=== PATIENT | female | born 1990 | race Caucasian/White ===

== ENCOUNTER 2022-03-02 13:10 | Emergency (ER) | payer MEDICAID, SELFPAY ==
[2022-03-02 13:18] VITALS: BP 154/112; PULSE 123; RESP 20; TEMP 36.7; O2SAT 98; BMI 24.0
--- NOTE | 2022-03-02 14:10 | ED_ITS ---
HPI - Anxiety General: Chief Complaint: Anxiety Stated Complaint: Alcohol withdrawl, anxiety Time Seen by Provider: 03/02/22 13:58 History of Present Illness: Patient is a 32-year-old female comes to the ED with alcohol withdrawal symptoms. Patient admits to being a heavy alcohol user for the past 3 months and she quit alcohol using alcohol on Saturday. She started having symptoms on Saturday. She has been having increased anxiety, shakiness, auditory hallucinations. Auditory hallucinations are described as hearing music at night when she is laying down to sleep. She also reports not being able to sleep for the past several days as well and says her body constantly jerks at night keeping her up. She reports having her eyes closed and that her body will start doing actions such as scrolling through her phone even though she does not currently have her phone in her hand. She says her withdrawal symptoms are better than they were a couple days ago. Denies any SI, HI. Associated symptoms: Reports nausea; Deny chest pain, chills, fever(s), headache(s), palpitations or vomiting Review of Systems Const: Denies: fever(s), chills or fatigue Eyes: Denies: change in vision or eye discomfort ENMT: Denies: throat pain, odynophagia, nasal discharge or nasal congestion Card: Denies: chest pain, palpitations, edema, swelling of feet/ankles, dyspnea on exertion or orthopnea Resp: Denies: dyspnea, productive cough or non-productive cough GI: Reports: nausea; Denies: abdominal pain, vomiting, diarrhea, constipation or hematochezia : Denies: flank pain, dysuria or hematuria Musc: Denies: neck pain, back pain or extremity swelling Skin/Breast: Denies: rash or new lesions Neuro: Denies: headache(s), numbness in extremities or weakness in extremities Psych: Reports: anxiety, auditory hallucinations and other (Alcohol withdrawal symptoms) [facility] ED PFSH: Medical History No pertinent family history Surgical History No pertinent past surgical history Female Reproductive History: Date of last menstrual period: 03/02/22 Physical Exam Const: COMMON NORMALS: no acute distress, patient oriented x3 and alert GENERAL APPEARANCE: cooperative and anxious HENMT: COMMON NORMALS: normocephalic HEAD & SCALP: normocephalic MOUTH: Normal oral and palatal mucosa present THROAT: posterior oropharynx normal and uvula midline Eye: COMMON NORMALS: Equal, round and reactive pupils present and conjunctivae normal CONJUNCTIVA: Yes conjunctivae normal PUPIL: Yes Equal, round and reactive pupils present Neck/C-Spine: COMMON NORMALS: supple GENERAL: Yes normal visual inspection Resp: COMMON NORMALS: normal respiratory effort, No retractions, No use of accessory muscles and clear to auscultation bilaterally AUSCULTATION: clear to auscultation bilaterally Cardio: COMMON NORMALS: regular rate, regular rhythm, S1 normal heart sound present, S2 normal heart sound present, No gallops present (Cardio), No clicks present (Cardio), No murmurs present (Cardio) and Peripheral pulses 2+ through out RATE: regular rate RHYTHM: regular rhythm HEART SOUNDS: S1 normal heart sound present and S2 normal heart sound present PERIPHERAL PULSES: Peripheral pulses 2+ throughout GI: COMMON NORMALS: Normal to inspection, nondistended, normoactive bowel sounds present, Soft to palpation, non-tender and no masses PALPATION: Yes Soft to palpation : COMMON NORMALS: Yes no CVA tenderness BLADDER/KIDNEY EXAM: Yes no CVA tenderness Back/Pelvis: COMMON NORMALS: no CVA tenderness Extremity: NARRATIVE EXTREMITY EXAM: shakiness in bilateral hands Neuro: COMMON NORMALS: patient oriented x3 and moves all extremities SENSORIUM/ORIENTATION: Yes alert SPEECH: speech normal Psych: THOUGHT CONTENT: No Suicidality present, No Homicidality present and No Hallucination(s) present Skin: GENERAL SKIN EXAM: dry skin Course Vital Signs: Vital signs: Vital Signs Temperature 98.0 F 03/02/22 13:18 Pulse Rate 123 H 03/02/22 13:18 Respiratory Rate 20 H 03/02/22 13:18 Blood Pressure 154/112 03/02/22 13:18 Pulse Oximetry 98 03/02/22 13:18 MDM - Anxiety Medical Decision Making Patient is a 32-year-old female comes to the ED with some alcohol withdrawal symptoms. Patient has been a heavy drinker for the last 3 to 4 months and decided to stop drinking approximately 5 days ago. She has been having some withdrawal symptoms of anxiety, shakiness, nausea and diaphoresis. She is also experiencing some very mild auditory hallucinations such as hearing some music at night when she lays down to close her eyes and sleep. she says that her symptoms were worse a couple days ago and they have been improving. Denies any SI or HI. Vitals are stable. Patient does appear anxious and has some bilateral hand shaking upon exam. The rest of her exam is benign. Labs were unremarkable. Urine drug screen was negative and alcohol level was normal. Patient was given IV fluids, thiamine and some Ativan to help with withdrawal symptoms. I discussed with patient the importance of alcohol detox and patient said she is serious about quitting drinking alcohol. I discussed patient case with Dr. Jones and he agreed with plan that she could be stable for discharge home and sent her with a prescription of Librium. Patient was stable for discharge home and she was sent home with a prescription for Librium. I stressed with her multiple times that if she is going to take the Librium she cannot be drinking any alcohol. I also told her that the Librium is something to use to help with withdrawal symptoms and that she can likely taper off of the librium for the next couple days as her withdrawal symptoms lessen. Patient did not want a referral to behavioral health for anxiety. I placed an order with case management for patient be referred to [facility]. She was given strict return ED precautions. Lab Data I reviewed the patient's lab results. : 03/02/22 14:35 03/02/22 14:35 Laboratory Results WBC 6.8 10^3/uL (4.0-10.0) 03/02/22 14:35 RBC 4.39 10^6/uL (4.1-5.3) 03/02/22 14:35 Hgb 14.5 g/dL (11.5-15.3) 03/02/22 14:35 Hct 43.6 % (37.0-47.0) 03/02/22 14:35 MCV 99.3 fl (81-99) H 03/02/22 14:35 MCH 33.0 pg (28.0-34.0) 03/02/22 14:35 MCHC 33.3 g/dL (30.0-36.0) 03/02/22 14:35 RDW 12.5 % (12.1-15.1) 03/02/22 14:35 Plt Count 156 10^3/cmm (130-400) 03/02/22 14:35 MPV 9.7 fL (7.4-10.4) 03/02/22 14:35 Neut % (Auto) 75.5 % 03/02/22 14:35 Lymph % (Auto) 15.2 % 03/02/22 14:35 [place] % (Auto) 8.0 % 03/02/22 14:35 Eos % (Auto) 0.6 % 03/02/22 14:35 Baso % (Auto) 0.6 % 03/02/22 14:35 Neut # (Auto) 5.13 10^3/uL (1.8-7.7) 03/02/22 14:35 Lymph # (Auto) 1.0 10^3/uL (0.8-4.8) 03/02/22 14:35 [place] # (Auto) 0.5 10^3/uL (0.2-0.9) 03/02/22 14:35 Eos # (Auto) 0.0 10^3/uL (0.0-0.8) 03/02/22 14:35 Baso # (Auto) 0.0 10^3/uL (0.0-0.1) 03/02/22 14:35 Nucleated RBC % (auto) 0 % 03/02/22 14: Nucleated RBCs # 0.0 /100WBC 03/02/22 14:35 Sodium 138 mmol/L (136-145) 03/02/22 14:35 Potassium 3.5 mmol/L (3.5-5.1) 03/02/22 14:35 Chloride 102 mmol/L (98-107) 03/02/22 14:35 Carbon Dioxide 21 mmol/L (22-29) L 03/02/22 14:35 Anion Gap 18.5 (5-19) 03/02/22 14:35 BUN 8 mg/dL (6-20) 03/02/22 14:35 Creatinine 0.6 mg/dL (0.5-0.9) 03/02/22 14:35 GFR Calculation 115.9 mL/min (90-130) 03/02/22 14:35 Glucose 93 mg/dL (65-115) 03/02/22 14:35 Calculated Osmolality 284 mOsm/kg (285-295) L 03/02/22 14:35 Calcium 8.8 mg/dL (8.5-10.5) 03/02/22 14:35 Total Bilirubin 1.2 mg/dL (0.15-1.2) 03/02/22 14:35 AST 38 U/L (0-32) H 03/02/22 14:35 ALT 29 U/L (0-33) 03/02/22 14:35 Alkaline Phosphatase 79 IU/L (35-105) 03/02/22 14:35 Total Protein 8.0 g/dL (6.6-8.7) 03/02/22 14:35 Albumin 5.3 g/dL (3.5-5.2) H 03/02/22 14:35 Globulin 2.7 g/dL (1.3-4.6) 03/02/22 14:35 HCG, Qual Negative (Negative) 03/02/22 14:35 Urine Color Yellow (Yellow) 03/02/22 14:00 Urine Appearance Clear (CLEAR) 03/02/22 14:00 Urine pH 7 (5-7) 03/02/22 14:00 Ur Specific [place] 1.000 (1.005-1.030) L 03/02/22 14:00 Urine Protein Neg (Negative) 03/02/22 14:00 Urine Glucose (UA) Norm (Normal) 03/02/22 14:00 Urine Ketones 1+ (Negative) H 03/02/22 14:00 Urine Blood Neg (Negative) 03/02/22 14:00 Urine Nitrate Negative (Negative) 03/02/22 14:00 Urine Bilirubin Neg (Negative) 03/02/22 14:00 Urine Urobilinogen Norm mg/dL (Negative) 03/02/22 14:00 Ur Leukocyte Esterase Negative (Negative) 03/02/22 14:00 Salicylates 0.4 mg/dL (3-10) L 03/02/22 14:35 Urine Opiates Screen Negative ng/mL (Negative) 03/02/22 14:00 Acetaminophen < 5.0 ug/mL (10-30) L 03/02/22 14:35 Ur Barbiturates Screen Negative ng/mL (Negative) 03/02/22 14:00 Ur Phencyclidine Scrn Negative ng/mL (Negative) 03/02/22 14:00 Ur Amphetamines Screen Negative ng/mL (Negative) 03/02/22 14:00 U Benzodiazepines Scrn Negative ng/mL (Negative) 03/02/22 14:00 Urine Cocaine Screen Negative ng/mL (Negative) 03/02/22 14:00 U Marijuana (THC) Screen Negative ng/mL (Negative) 03/02/22 14:00 Ethyl Alcohol < 10 mg/dL (0-10) 03/02/22 14:35 Discharge Plan Discharge Patient Disposition: Home Clinical Impression: Alcohol withdrawal syndrome Qualifiers: Complication of substance-induced condition: uncomplicated Qualified Code(s): F10.230 - Alcohol dependence with withdrawal, uncomplicated Condition: Stable Prescriptions: New ondansetron 4 mg tablet,disintegrating 4 mg PO Q8H PRN (Reason: nausea and vomiting) Qty: 15 0RF Discharge Orders: Discharge ED (Routine); Ordered 03/02/22 Ordered By: Levi Wiggins Discharge Diet: Regular Discharge Activity: Increase activity as tolerated Activity Restrictions/Additional Instructions: Follow-up with medical provider as directed in the next 3 to 5 days for reevaluation. Case management should be contacting you in the next several days set up an appoint with behavioral health. Do not drink alcohol while taking Librium. Your prescription is written for you to take 1 tab of Librium as needed for withdrawal symptoms up to 3 times a day. The goal is for you to taper off of them as withdrawal symptoms decrease. Take medications as prescribed. Return to the ER or your medical provider if condition worsens. Ple ase read and understand discharge instructions. Thank you for choosing [facility] for your healthcare needs today. Please realize this is an emergency room and that we are providing you with a medical screening exam and this may not be complete and all inclusive of all the testing and or work up that you may need to determine your ailment or severity of your illness. It is very important that you follow up as instructed or that you return to the Emergency Department should you have concerns or if your condition changes or worsens in any way. Coding Level of Care Code ED Immigration Specialist for Fannie Carr Exam Comprehensive
[2022-03-02 14:24] LABS: Add Urine Microscopic? NO; Charge for UA Resulting for Rev
[2022-03-02 14:26] LABS: Bilirubin Urine Neg (Negative); Blood Urine Neg (Negative); Glucose Urine UA Norm (Normal); Ketones Urine 1+ (Negative); Leukocyte Esterase Urine Negative (Negative); Nitrate Urine Negative (Negative); Protein Urine Neg (Negative); Urine Appearance Clear (CLEAR); Urine Color Yellow (Yellow); Urobilinogen Urine Norm (Negative); pH Urine 7 (5-7)
[2022-03-02 14:34] LABS: Amphetamines Screen Urine Negative (Negative); Barbiturates Screen Urine Negative (Negative); Benzodiazepines Screen Urine Negative (Negative); Cocaine Screen Urine Negative (Negative); Opiate Screen Urine Negative (Negative); PCP Screen Urine Negative (Negative); THC Screen Urine Negative (Negative)
[2022-03-02 14:41] LABS: Basophils % 0.6 %; Eosinophils % 0.6 %; Hematocrit 43.6 % (37.0-47.0); Hemoglobin 14.5 g/dL (11.5-15.3); Lymphocytes % 15.2 %; Mean Corpuscular HGB Conc 33.3 g/dL (30.0-36.0); Mean Corpuscular Volume 99.3 fl (81-99); Mean Platelet Volume 9.7 fL (7.4-10.4); Monocytes # 0.5 10^3/uL (0.2-0.9); Neutrophils # 5.13 10^3/uL (1.8-7.7); Neutrophils % 75.5 %; Nucleated Red Blood Cells % 0 %; Platelet Count 156 10^3/cmm (130-400); Red Blood Count 4.39 10^6/uL (4.1-5.3); Red Cell Distribution Width 12.5 % (12.1-15.1); White Blood Count 6.8 10^3/uL (4.0-10.0)
[2022-03-02] MEDS: sodium chloride 0.9% 1,000 ML 999 ML IV (14:48)
[2022-03-02 14:55] LABS: HCG, Serum Qual Negative (Negative)
[2022-03-02 15:06] LABS: Alanine Aminotransferase 29 U/L (0-33); Albumin Level 5.3 g/dL (3.5-5.2); Alkaline Phosphatase 79 IU/L (35-105); Anion Gap 18.5 (5-19); Aspartate Amino Transferase 38 U/L (0-32); Blood Urea Nitrogen 8 mg/dL (6-20); Calcium 8.8 mg/dL (8.5-10.5); Carbon Dioxide 21 mmol/L (22-29); Chloride 102 mmol/L (98-107); Creatinine Clr Calc Pharmacy 123.7201; Globulin 2.7 g/dL (1.3-4.6); Glomerular Filtration Rate 115.9 mL/min (90-130); Glucose 93 mg/dL (65-115); Osmolality Calculated 284 mOsm/kg (285-295); Potassium 3.5 mmol/L (3.5-5.1); Salicylate 0.4 mg/dL (3-10); Sodium 138 mmol/L (136-145); Total Bilirubin 1.2 mg/dL (0.15-1.2)
[2022-03-02 15:10] LABS: Acetaminophen < 5.0 ug/mL (10-30); Alcohol Level < 10 mg/dL (0-10)
[2022-03-02] MEDS: LORazepam 2 mg/mL INJ 1 mL 1 MG IVP (15:37)
--- NOTE | 2022-03-05 15:07 | DCPLANNER ---
manager radio had message to speak with patient about services at [facility]. manager radio called phone number [phone] to speak with her about services at [facility]. manager radio unable to speak with patient at this time, and unable to leave a voicemail for patient.
== END 2022-03-02 16:50 | disposition home or self-care (01) ==
PROVIDERS: Emergency Provider Physician Assistant
DX: F10.230 Alcohol dependence with withdrawal, uncomplicated (principal)
CPT/HCPCS: 80053; 80306; 80307; 81003; 84703; 85025; 96361; 96374; 96375; 99283; J2060; J3411; J7030

== ENCOUNTER 2022-03-21 08:09 | Emergency (ER) | payer MEDICAID, SELFPAY ==
[2022-03-21 08:20] VITALS: BP 152/115; PULSE 114; RESP 20; O2SAT 98; BMI 24.0
--- NOTE | 2022-03-21 08:28 | ED_ITS ---
Documented by User: MANISH Vazquez 03/21/22 09:53 HPI - Alcohol General: Chief Complaint: Alcohol Stated Complaint: etoh withdrawls Time Seen by Provider: 03/21/22 08:10 Source: patient Mode of arrival: ambulatory Limitations: no limitations History of Present Illness: Patient is a nice 32-year-old female presents to ED today with a complaint of anxiety and alcohol withdrawal. Patient tells me she had been drinking heavily over the past several months. She was seen at our facility 2 to 3 weeks ago after she had stopped drinking and was having some mild withdrawal symptoms. Patient was discharged and prescribed Librium. Patient states she did take this medication and it did help with her withdrawal symptoms and anxiety. Patient states she was not drinking while she was on this medication. She states she ran out of the medication and states recently her father causing her to relapse and start drinking again about 3 to 4 days ago. She states her last drink was 48 hours ago. She complains of feeling anxious and shaky . She does complain of some auditory hallucinations of hearing music in the background. She is not having any visual hallucinations. Denies SI/HI. Denies drug use. Patient states she was supposed to have a referral for [facility] to see a provider regarding her anxiety but has not heard back regarding this appointment. MD complaint: alcohol withdrawal Last drink: Days (ago) Chronic alcohol use: Yes Previous visits for alcohol intoxication: Yes Recent trauma: No Associated symptoms: Deny abdominal pain, nausea, seizure-like activity, suicidal ideation, syncope or vomiting Treatments prior to arrival: none Review of Systems Const: Denies: fever(s), chills, body aches, fatigue or malaise Eyes: Denies: change in vision, blurry vision or photophobia Card: Denies: chest pain, palpitations, irregular heart rhythm, edema, swelling of feet/ankles, lightheadedness, syncope, pre-syncope, dyspnea on exertion or orthopnea Resp: Denies: dyspnea, productive cough, non-productive cough, wheezing, pain on inspiration, hemoptysis or chest congestion GI: Denies: abdominal pain, nausea, vomiting, heartburn or diarrhea : Denies: flank pain or dysuria Musc: Denies: neck pain, back pain, extremity pain or joint pain Skin/Breast: Denies: rash Neuro: Denies: headache(s), numbness in extremities, weakness in extremities, sensory changes, lack of coordination, difficulty walking, dizziness, confusion, Slurred speech present or seizure-like activity Psych: Reports: anxiety and auditory hallucinations; Denies: hopelessness, visual hallucinations, suicidal ideation or homicidal ideation PFS ED PFSH: Medical History No pertinent family history Surgical History No pertinent past surgical history Female Reproductive History: Date of last menstrual period: 03/02/22 Physical Exam Const: COMMON NORMALS: average body habitus, patient oriented x3, no limitations, healthy appearing, alert and well nourished GENERAL APPEARANCE: cooperative and anxious ORIENTATION/CONSCIOUSNESS: Yes awake, Yes oriented to person, Yes oriented to place and Yes oriented to time HENMT: COMMON NORMALS: normocephalic and atraumatic HEAD & SCALP: normal to inspection, normocephalic and atraumatic Eye: GENERAL EYE: appearance normal, both eyes and all related structures Resp: COMMON NORMALS: normal respiratory effort and clear to auscultation bilaterally AUSCULTATION: clear to auscultation bilaterally Cardio: COMMON NORMALS: regular rate RATE: regular rate and tachycardic (mild-105) GI: COMMON NORMALS: Normal to inspection, nondistended, normoactive bowel sounds present, Soft to palpation and non-tender PALPATION: Yes Soft to palpation Extremity: COMMON NORMALS: normal to inspection GENERAL: Yes normal exam except as noted OTHER: bilateral UEs tremors noted with arms extended Neuro: ALETA COMA SCALE: document GCS findings [place] coma scale eye opening: Spontaneous [place] coma scale verbal response: Orientated [place] coma scale motor response: Obey commands [place] coma scale total score: 15 COMMON NORMALS: patient oriented x3, CN's II-XII intact bilaterally, moves all extremities, no focal motor deficits, no sensory deficits noted and gait normal SENSORIUM/ORIENTATION: Yes alert, Yes oriented to person, Yes oriented to place and Yes oriented to time GAIT: Yes Normal gait present Psych: COMMON NORMALS: mental status grossly normal, Normal thought process present, cooperative, normal affect, speech normal, activity/motor behavior normal, denies homicidal ideation and denies suicidal ideation APPEARANCE: Yes grossly normal ATTITUDE: Yes calm ACTIVITY/MOTOR BEHAVIOR: Yes appropriate eye contact SPEECH: Yes normal speech MOOD & AFFECT: Yes euthymic mood THOUGHT PROCESS: Normal thought process present THOUGHT CONTENT: Yes Normal thought content present MEMORY/COGNITION: Yes memory grossly intact and Yes cognition grossly intact INSIGHT: Good insight present (Psych) JUDGEMENT: Good judgement present (Psych) Skin: COMMON NORMALS: no rashes or lesions noted GENERAL SKIN EXAM: no rashes or lesions noted Course Vital Signs: Vital signs: Vital Signs Pulse Rate 98 03/21/22 09:43 Respiratory Rate 16 03/21/22 09:43 Blood Pressure 120/84 03/21/22 09:43 Pulse Oximetry 100 03/21/22 09:43 MDM - Alcohol Medical Decision Making Patient here with mild alcohol withdrawal symptoms. Her CIWA score is roughly 10. She does not qualify for a medical admission. Patient feels better after IV Ativan and Benadryl. Vital signs are stable. Basic blood work is normal. Patient is not suicidal or homicidal. Patient states she did good while she was on the Librium last time so we will go ahead and treat her with a short course of this. She is requesting help for her anxiety. I recommend she go to [facility] for her intake screening assessment. Case management note states she was unable to contact patient last time. Her phone number has been updated and I will place another referral. Return to ED precautions given. Lab Data : 03/21/22 08:45 03/21/22 08:45 Laboratory Results WBC 3.7 10^3/uL (4.0-10.0) L 03/21/22 08:45 RBC 4.66 10^6/uL (4.1-5.3) 03/21/22 08:45 Hgb 14.9 g/dL (11.5-15.3) 03/21/22 08:45 Hct 44.2 % (37.0-47.0) 03/21/22 08:45 MCV 94.8 fl (81-99) 03/21/22 08:45 MCH 32.0 pg (28.0-34.0) 03/21/22 08:45 MCHC 33.7 g/dL (30.0-36.0) 03/21/22 08:45 RDW 12.9 % (12.1-15.1) 03/21/22 08:45 Plt Count 283 10^3/cmm (130-400) 03/21/22 08:45 MPV 9.9 fL (7.4-10.4) 03/21/22 08:45 Neut % (Auto) 55.4 % 03/21/22 08:45 Lymph % (Auto) 30.6 % 03/21/22 08:45 [place] % (Auto) 9.6 % 03/21/22 08:45 Eos % (Auto) 2.5 % 03/21/22 08:45 Baso % (Auto) 1.6 % 03/21/22 08:45 Neut # (Auto) 2.03 10^3/uL (1.8-7.7) 03/21/22 08:45 Lymph # (Auto) 1.1 10^3/uL (0.8-4.8) 03/21/22 08:45 [place] # (Auto) 0.4 10^3/uL (0.2-0.9) 03/21/22 08:45 Eos # (Auto) 0.1 10^3/uL (0.0-0.8) 03/21/22 08:45 Baso # (Auto) 0.1 10^3/uL (0.0-0.1) 03/21/22 08:45 Nucleated RBC % (auto) 0 % 03/21/22 08:45 Nucleated RBCs # 0.0 /100WBC 03/21/22 08:45 Sodium 136 mmol/L (136-145) 03/21/22 08:45 Potassium 4.0 mmol/L (3.5-5.1) 03/21/22 08:45 Chloride 102 mmol/L (98-107) 03/21/22 08:45 Carbon Dioxide 19 mmol/L (22-29) L 03/21/22 08:45 Anion Gap 19.0 (5-19) 03/21/22 08:45 BUN 7 mg/dL (6-20) 03/21/22 08:45 Creatinine 0.5 mg/dL (0.5-0.9) 03/21/22 08:45 GFR Calculation 143.0 mL/min (90-130) H 03/21/22 08:45 Glucose 92 mg/dL (65-115) 03/21/22 08:45 Calculated Osmolality 280 mOsm/kg (285-295) L 03/21/22 08:45 Calcium 9.0 mg/dL (8.5-10.5) 03/21/22 08:45 Total Bilirubin 1.0 mg/dL (0.15-1.2) 03/21/22 08:45 AST 26 U/L (0-32) 03/21/22 08:45 ALT 18 U/L (0-33) 03/21/22 08:45 Alkaline Phosphatase 66 IU/L (35-105) 03/21/22 08:45 Total Protein 7.7 g/dL (6.6-8.7) 03/21/22 08:45 Albumin 4.5 g/dL (3.5-5.2) 03/21/22 08:45 Globulin 3.2 g/dL (1.3-4.6) 03/21/22 08:45 HCG, Qual Negative (Negative) 03/21/22 08:45 Discharge Plan Discharge Patient Disposition: Home Clinical Impression: Alcohol withdrawal syndrome Qualifiers: Complication of substance-induced condition: uncomplicated Qualified Code(s): F10.230 - Alcohol dependence with withdrawal, uncomplicated Condition: Stable Prescriptions: Continued chlordiazepoxide HCl 25 mg capsule 25 mg PO TID PRN (Reason: Alcohol Withdrawal) Qty: 9 0RF No Action ondansetron 4 mg tablet,disintegrating 4 mg PO Q8H PRN (Reason: nausea and vomiting) Qty: 15 0RF Discharge Orders: Discharge ED (Routine); Ordered 03/21/22 Ordered By: Katarina Macias Patient Instructions: Alcohol Withdrawal (DC) Coding Level of Care Code ED Mobile Service Rv Technician for Chg Fwd Exam Comprehensive Documented by User: Franklyn Johnston DO 03/22/22 06:53 HPI - Alcohol General: Chief Complaint: Alcohol Stated Complaint: etoh withdrawls Time Seen by Provider: 03/21/22 08:10 PFSH ED PFSH: Medical History No pertinent family history Surgical History No pertinent past surgical history Physical Exam Neuro: ALETA COMA SCALE: document GCS findings [place] coma scale total score: 15 Course Vital Signs: Vital signs: Vital Signs Pulse Rate 98 03/21/22 09:43 Respiratory Rate 16 03/21/22 09:43 Blood Pressure 120/84 03/21/22 09:43 Pulse Oximetry 100 03/21/22 09:43 MDM - Alcohol Medical Decision Making Patient here with mild alcohol withdrawal symptoms. Her CIWA score is roughly 10. She does not qualify for a medical admission. Patient feels better after IV Ativan and Benadryl. Vital signs are stable. Basic blood work is normal. Patient is not suicidal or homicidal. Patient states she did good while she was on the Librium last time so we will go ahead and treat her with a short course of this. She is requesting help for her anxiety. I recommend she go to [facility] for her intake screening assessment. Case management note states she was unable to contact patient last time. Her phone number has been updated and I will place another referral. Return to ED precautions given. Chart reviewed and patient discussed with midlevel. Agree with assessment and plan. Lab Data : 03/21/22 08:45 03/21/22 08:45 Laboratory Results WBC 3.7 10^3/uL (4.0-10.0) L 03/21/22 08:45 RBC 4.66 10^6/uL (4.1-5.3) 03/21/22 08:45 Hgb 14.9 g/dL (11.5-15.3) 03/21/22 08:45 Hct 44.2 % (37.0-47.0) 03/21/22 08:45 MCV 94.8 fl (81-99) 03/21/22 08:45 MCH 32.0 pg (28.0-34.0) 03/21/22 08:45 MCHC 33.7 g/dL (30.0-36.0) 03/21/22 08:45 RDW 12.9 % (12.1-15.1) 03/21/22 08:45 Plt Count 283 10^3/cmm (130-400) 03/21/22 08:45 MPV 9.9 fL (7.4-10.4) 03/21/22 08:45 Neut % (Auto) 55.4 % 03/21/22 08:45 Lymph % (Auto) 30.6 % 03/21/22 08:45 [place] % (Auto) 9.6 % 03/21/22 08:45 Eos % (Auto) 2.5 % 03/21/22 08:45 Baso % (Auto) 1.6 % 03/21/22 08:45 Neut # (Auto) 2.03 10^3/uL (1.8-7.7) 03/21/22 08:45 Lymph # (Auto) 1.1 10^3/uL (0.8-4.8) 03/21/22 08:45 [place] # (Auto) 0.4 10^3/uL (0.2-0.9) 03/21/22 08:45 Eos # (Auto) 0.1 10^3/uL (0.0-0.8) 03/21/22 08:45 Baso # (Auto) 0.1 10^3/uL (0.0-0.1) 03/21/22 08:45 Nucleated RBC % (auto) 0 % 03/21/22 08:45 Nucleated RBCs # 0.0 /100WBC 03/21/22 08:45 Sodium 136 mmol/L (136-145) 03/21/22 08:45 Potassium 4.0 mmol/L (3.5-5.1) 03/21/22 08:45 Chloride 102 mmol/L (98-107) 03/21/22 08:45 Carbon Dioxide 19 mmol/L (22-29) L 03/21/22 08:45 Anion Gap 19.0 (5-19) 03/21/22 08:45 BUN 7 mg/dL (6-20) 03/21/22 08:45 Creatinine 0.5 mg/dL (0.5-0.9) 03/21/22 08:45 GFR Calculation 143.0 mL/min (90-130) H 03/21/22 08:45 Glucose 92 mg/dL (65-115) 03/21/22 08:45 Calculated Osmolality 280 mOsm/kg (285-295) L 03/21/22 08:45 Calcium 9.0 mg/dL (8.5-10.5) 03/21/22 08:45 Total Bilirubin 1.0 mg/dL (0.15-1.2) 03/21/22 08:45 AST 26 U/L (0-32) 03/21/22 08:45 ALT 18 U/L (0-33) 03/21/22 08:45 Alkaline Phosphatase 66 IU/L (35-105) 03/21/22 08:45 Total Protein 7.7 g/dL (6.6-8.7) 03/21/22 08:45 Albumin 4.5 g/dL (3.5-5.2) 03/21/22 08:45 Globulin 3.2 g/dL (1.3-4.6) 03/21/22 08:45 HCG, Qual Negative (Negative) 03/21/22 08:45 Discharge Plan Discharge Patient Disposition: Home Clinical Impression: Alcohol withdrawal syndrome Qualifiers: Complication of substance-induced condition: uncomplicated Qualified Code(s): F10.230 - Alcohol dependence with withdrawal, uncomplicated Condition: Stable Prescriptions: Continued chlordiazepoxide HCl 25 mg capsule 25 mg PO TID PRN (Reason: Alcohol Withdrawal) Qty: 9 0RF No Action ondansetron 4 mg tablet,disintegrating 4 mg PO Q8H PRN (Reason: nausea and vomiting) Qty: 15 0RF Discharge Orders: Discharge ED (Routine); Ordered 03/21/22 Ordered By: Katarina Macias Patient Instructions: Alcohol Withdrawal (DC) Coding Level of Care Code ED Mobile Service Rv Technician for Chg Fwd Exam Comprehensive
[2022-03-21] MEDS: sodium chloride 0.9% 1,000 ML 999 ML IV (08:41)
[2022-03-21] MEDS: multivitamin therapeutic Tablet 1 TAB PO (08:51)
[2022-03-21] MEDS: LORazepam 2 mg/mL INJ 1 mL IVP (08:51)
[2022-03-21 09:04] VITALS: BP 126/87; PULSE 96; RESP 16; O2SAT 98
[2022-03-21 09:08] LABS: Basophils # 0.1 10^3/uL (0.0-0.1); Basophils % 1.6 %; Eosinophils # 0.1 10^3/uL (0.0-0.8); Eosinophils % 2.5 %; Hematocrit 44.2 % (37.0-47.0); Hemoglobin 14.9 g/dL (11.5-15.3); Lymphocytes # 1.1 10^3/uL (0.8-4.8); Lymphocytes % 30.6 %; Mean Corpuscular HGB Conc 33.7 g/dL (30.0-36.0); Mean Corpuscular Volume 94.8 fl (81-99); Mean Platelet Volume 9.9 fL (7.4-10.4); Monocytes # 0.4 10^3/uL (0.2-0.9); Monocytes % 9.6 %; Neutrophils # 2.03 10^3/uL (1.8-7.7); Neutrophils % 55.4 %; Nucleated Red Blood Cells % 0 %; Platelet Count 283 10^3/cmm (130-400); Red Blood Count 4.66 10^6/uL (4.1-5.3); Red Cell Distribution Width 12.9 % (12.1-15.1); White Blood Count 3.7 10^3/uL (4.0-10.0)
[2022-03-21 09:28] LABS: Alanine Aminotransferase 18 U/L (0-33); Albumin Level 4.5 g/dL (3.5-5.2); Alkaline Phosphatase 66 IU/L (35-105); Aspartate Amino Transferase 26 U/L (0-32); Blood Urea Nitrogen 7 mg/dL (6-20); Carbon Dioxide 19 mmol/L (22-29); Chloride 102 mmol/L (98-107); Creatinine Clr Calc Pharmacy 148.4641; Globulin 3.2 g/dL (1.3-4.6); Glucose 92 mg/dL (65-115); Osmolality Calculated 280 mOsm/kg (285-295); Sodium 136 mmol/L (136-145); Total Protein 7.7 g/dL (6.6-8.7)
[2022-03-21 09:35] LABS: HCG, Serum Qual Negative (Negative)
[2022-03-21 09:43] VITALS: BP 120/84; PULSE 98; RESP 16; O2SAT 100
[2022-03-21] MEDS: diphenhydrAMINE 50 mg/mL SDV 1mL 25 MG IVP (09:51)
--- NOTE | 2022-04-09 13:54 | DCPLANNER ---
billing services manager had message to speak with patient about services at [facility] [place]. billing services manager called phone number [phone], unable to speak with patient and unable to leave a voicemail for patient.
== END 2022-03-21 10:25 | disposition home or self-care (01) ==
PROVIDERS: Emergency Provider Physician Assistant
DX: F10.230 Alcohol dependence with withdrawal, uncomplicated (principal); Y90.9 Presence of alcohol in blood, level not specified
CPT/HCPCS: 80053; 84703; 85025; 96361; 96374; 96375; 99284; J1200; J2060; J3411; J7030

== ENCOUNTER 2022-04-05 09:28 | Emergency (ER) | payer MEDICAID, SELFPAY ==
[2022-04-05 09:46] VITALS: BP 137/102; PULSE 140; RESP 24; TEMP 36.7; O2SAT 97; BMI 24.0
--- NOTE | 2022-04-05 09:56 | XR_ITS ---
WS: [id number] Portable AP upright chest, 04/05/2022 Clinical Data: dyspnea/cough Comparison: None. Findings: No nodules, masses or effusions are seen. The heart is normal. The pulmonary vascularity is not increased. No pneumonia or pneumothorax is seen. XR/XR chest 1V portable [id number] Impression: Negative chest.
--- NOTE | 2022-04-05 10:10 | ED_ITS ---
HPI - Alcohol General: Chief Complaint: Alcohol Stated Complaint: Alcohol withdraw Time Seen by Provider: 04/05/22 09:44 Source: patient Mode of arrival: ambulatory Limitations: no limitations History of Present Illness: 32-year-old female presents emergency room complaining of withdrawal from alcohol. She stated she is having all of the symptoms . She normally drinks 6 beers a day for the last month. She occasionally will have shots of hard liquor. Her last drink was approximately 18 hours ago. She has been seen previously with complaints of withdrawal and was given chlordiazepoxide which she took 1 this morning at 4 AM. Last drink: Hours (ago) Chronic alcohol use: Yes Associated symptoms: Reports vomiting; Deny abdominal pain, depression, diaphoresis, hematemesis, involuntary movements, melena, nausea, seizure-like activity, suicidal ideation or syncope Treatments prior to arrival: none Review of Systems Const: Denies: fever(s), chills, body aches or diaphoresis ENMT: Denies: throat pain, ear or mastoid pain, nasal discharge or nasal congestion Card: Denies: chest pain, palpitations or syncope Resp: Denies: dyspnea, productive cough or non-productive cough GI: Reports: vomiting; Denies: abdominal pain, nausea, hematemesis or melena : Denies: flank pain, difficulty voiding, dysuria, urinary frequency or urinary urgency Skin/Breast: Denies: rash or pruritus Neuro: Denies: seizure-like activity or involuntary movements Psych: Denies: depression or suicidal ideation PFS ED PFSH: Medical History No pertinent family history Surgical History No pertinent past surgical history Female Reproductive History: Date of last menstrual period: 04/03/22 Physical Exam Const: GENERAL APPEARANCE: cooperative and comfortable ORIENTATION/CONSCIOUSNESS: Yes awake, Yes oriented to person, Yes oriented to place and Yes oriented to time HENMT: COMMON NORMALS: normocephalic, atraumatic and hearing grossly normal bilaterally HEAD & SCALP: normocephalic and atraumatic Neck/C-Spine: COMMON NORMALS: no JVD Resp: COMMON NORMALS: No retractions, No use of accessory muscles and clear to auscultation bilaterally EFFORT & INSPECTION: Yes tachypneic AUSCULTATION: clear to auscultation bilaterally Cardio: COMMON NORMALS: no JVD, regular rate, regular rhythm and No murmurs present (Cardio) RATE: regular rate RHYTHM: regular rhythm GI: COMMON NORMALS: Soft to palpation and No hepatosplenomegaly present AUSCULTATION: Yes normoactive bowel sounds PALPATION: Yes Soft to palpation, No Tenderness to palpation present (GI), No Guarding due to palpation present (G I) and Yes No hepatosplenomegaly present Extremity: COMMON NORMALS: normal to inspection, capillary refill normal, no clubbing, cyanosis or edema, no calf tenderness and no pedal edema Neuro: SENSORIUM/ORIENTATION: Yes oriented to person, Yes oriented to place and Yes oriented to time Skin: COMMON NORMALS: no rashes or lesions noted GENERAL SKIN EXAM: no rashes or lesions noted Course Vital Signs: Vital signs: Vital Signs Temperature 98.0 F 04/05/22 09:46 Pulse Rate 121 H 04/05/22 12:37 Respiratory Rate 16 04/05/22 12:10 Blood Pressure 116/76 04/05/22 12:37 Pulse Oximetry 98 04/05/22 12:37 MDM - Alcohol Medical Decision Making Blood alcohol 33. Patient stated her last drink was about 15 to 18 hours ago in which case she was significantly intoxicated she states she only drinks 6 beers a day. Her blood gas reflects respiratory alkalosis she was hyperventilating when she arrived here. She has presented multiple times in the past with complaints of alcohol withdrawal. Mucus is more anxiety gave her Atarax to use as needed encourage alcohol abstinence. Medical Records I reviewed the patient's medical records. Lab Data I reviewed the patient's lab results. : 04/05/22 11:01 04/05/22 11:01 Radiology Impressions Chest X-Ray 04/05/22 09:56 Impression: Negative chest. Laboratory Results WBC 5.9 10^3/uL (4.0-10.0) 04/05/22 11:01 RBC 4.99 10^6/uL (4.1-5.3) 04/05/22 11:01 Hgb 15.8 g/dL (11.5-15.3) H 04/05/22 11:01 Hct 46.6 % (37.0-47.0) 04/05/22 11:01 MCV 93.4 fl (81-99) 04/05/22 11:01 MCH 31.7 pg (28.0-34.0) 04/05/22 11:01 MCHC 33.9 g/dL (30.0-36.0) 04/05/22 11:01 RDW 13.5 % (12.1-15.1) 04/05/22 11:01 Plt Count 279 10^3/cmm (130-400) 04/05/22 11:01 MPV 9.6 fL (7.4-10.4) 04/05/22 11:01 Neut % (Auto) 77.6 % 04/05/22 11:01 Lymph % (Auto) 16.2 % 04/05/22 11:01 [place] % (Auto) 4.3 % 04/05/22 11:01 Eos % (Auto) 0.5 % 04/05/22 11:01 Baso % (Auto) 1.2 % 04/05/22 11:01 Neut # (Auto) 4.57 10^3/uL (1.8-7.7) 04/05/22 11:01 Lymph # (Auto) 1.0 10^3/uL (0.8-4.8) 04/05/22 11:01 [place] # (Auto) 0.3 10^3/uL (0.2-0.9) 04/05/22 11:01 Eos # (Auto) 0.0 10^3/uL (0.0-0.8) 04/05/22 11:01 Baso # (Auto) 0.1 10^3/uL (0.0-0.1) 04/05/22 11:01 Nucleated RBC % (auto) 0 % 04/05/22 11:01 Nucleated RBCs # 0.0 /100WBC 04/05/22 11:01 Specimen Type Arterial 04/05/22 11:22 Sample Site Radial, left 04/05/22 11:22 ABG pH 7.45 (7.35-7.45) 04/05/22 11:22 ABG pCO2 25.8 mmHg (35-45) L 04/05/22 11:22 ABG pO2 108.0 mmHg (80.0-100.0) H 04/05/22 11:22 ABG HCO3 18.1 mmol/L (22-26) L 04/05/22 11:22 ABG O2 Saturation 98.7 04/05/22 11:22 ABG Base Excess -4.1 mmol/L (-2.0-2.0) L 04/05/22 11:22 Ag Test Pos 04/05/22 11:22 A-a O2 Gradient 0.8 mmHg (5-10) L 04/05/22 11:22 Hematocrit 44.2 % (37-47) 04/05/22 11:22 Hgb O2 Saturation 97.6 % (95-100) 04/05/22 11:22 Carboxyhemoglobin 0.6 %THgb (0.4-20.1) 04/05/22 11:22 Methemoglobin 0.4 % (0.4-1.5) 04/05/22 11:22 Total Hemoglobin 14.4 g/dL (12-16) 04/05/22 11:22 Sodium 140.0 mmol/L (131-143) 04/05/22 11:22 Potassium 4.0 mmol/L (3.5-5.0) 04/05/22 11:22 Glucose 70.0 mg/dL (70-115) 04/05/22 11:22 Ionized Calcium 1.1 mmol/L (1.1-1.4) 04/05/22 11:22 O2 Delivery Device Room air 04/05/22 11:22 FiO2 21.0 % 04/05/22 11:22 Donor Support Technician ID glc 04/05/22 11:22 Sodium 136 mmol/L (136-145) 04/05/22 11:01 Potassium 4.5 mmol/L (3.5-5.1) 04/05/22 11:01 Chloride 96 mmol/L (98-107) L 04/05/22 11:01 Carbon Dioxide 18 mmol/L (22-29) L 04/05/22 11:01 Anion Gap 26.5 (5-19) H 04/05/22 11:01 BUN 6 mg/dL (6-20) 04/05/22 11:01 Creatinine 0.5 mg/dL (0.5-0.9) 04/05/22 11:01 GFR Calculation 143.0 mL/min (90-130) H 04/05/22 11:01 Glucose 68 mg/dL (65-115) 04/05/22 11:01 Calculated Osmolality 278 mOsm/kg (285-295) L 04/05/22 11:01 Calcium 9.2 mg/dL (8.5-10.5) 04/05/22 11:01 Total Bilirubin 1.1 mg/dL (0.15-1.2) 04/05/22 11:01 AST 47 U/L (0-32) H 04/05/22 11:01 ALT 23 U/L (0-33) 04/05/22 11:01 Alkaline Phosphatase 89 IU/L (35-105) 04/05/22 11:01 Total Protein 8.5 g/dL (6.6-8.7) 04/05/22 11:01 Albumin 5.0 g/dL (3.5-5.2) 04/05/22 11:01 Globulin 3.5 g/dL (1.3-4.6) 04/05/22 11:01 Salicylates < 0.3 mg/dL (3-10) L 04/05/22 11:01 Acetaminophen < 5.0 ug/mL (10-30) L 04/05/22 11:01 Ethyl Alcohol 33 mg/dL (0-10) H 04/05/22 11:01 Discharge Plan Discharge Patient Disposition: Home Clinical Impression: Alcoholic intoxication, Hyperventilation Condition: Stable Prescriptions: New hydroxyzine HCl 25 mg tablet 25 mg PO 6XD PRN (Reason: anxiety) Qty: 20 0RF No Action chlordiazepoxide HCl 25 mg capsule 25 mg PO TID PRN (Reason: Alcohol Withdrawal) Qty: 9 0RF Discharge Orders: Discharge ED (Routine); Ordered 04/05/22 Ordered By: Franklyn Johnston Patient Instructions: Opioid Safety Activity Restrictions/Additional Instructions: Recommend abstinence from alcohol. Also recommend follow-up either with alcoholics anonymous group or with [facility] to assist. Coding Level of Care Code ED Soa Architect for Rachelleg Fwd Exam Comprehensive
--- NOTE | 2022-04-05 10:10 | ECG_ITS ---
[facility] Test Date: 2022-04-05 Pat Name: Zeinab Damico Department: Room: Gender: Female Marketing Sales Manager: : 1990 Requested By: Franklyn Dawson Order Number: [id number] Vasu MD: Darci Stovall M.D. Measurements Intervals [place] Rate: 104 P: 76 [place]: 146 QRS: 68 QRSD: 79 T: 60 QT: 305 QTc: 401 Interpretive Statements SINUS TACHYCARDIA POSSIBLE LEFT ATRIAL ENLARGEMENT [-0.1mV P-WAVE IN V1/V2] No previous ECG available for comparison Electronically Signed On 04-05-2022 17:15:39 CDT by Darci Stovall M.D. [email or web address]
[2022-04-05 11:06] VITALS: BP 134/87; PULSE 114; RESP 16; O2SAT 98
[2022-04-05 11:06] LABS: Basophils # 0.1 10^3/uL (0.0-0.1); Basophils % 1.2 %; Eosinophils % 0.5 %; Hematocrit 46.6 % (37.0-47.0); Hemoglobin 15.8 g/dL (11.5-15.3); Lymphocytes % 16.2 %; Mean Corpuscular HGB Conc 33.9 g/dL (30.0-36.0); Mean Corpuscular Hemoglobin 31.7 pg (28.0-34.0); Mean Corpuscular Volume 93.4 fl (81-99); Mean Platelet Volume 9.6 fL (7.4-10.4); Monocytes # 0.3 10^3/uL (0.2-0.9); Monocytes % 4.3 %; Neutrophils # 4.57 10^3/uL (1.8-7.7); Neutrophils % 77.6 %; Nucleated Red Blood Cells % 0 %; Platelet Count 279 10^3/cmm (130-400); Red Blood Count 4.99 10^6/uL (4.1-5.3); Red Cell Distribution Width 13.5 % (12.1-15.1); White Blood Count 5.9 10^3/uL (4.0-10.0)
[2022-04-05] MEDS: pantoprazole 40 mg SDV IVP (11:18)
[2022-04-05] MEDS: sodium chloride 0.9% 1,000 ML 999 ML IV (11:21)
[2022-04-05] MEDS: ondansetron 2 mg/ML SDV 2 mL 4 MG IVP (11:22)
[2022-04-05] MEDS: LORazepam 2 mg/mL INJ 1 mL IVP ×2 (11:22→12:21)
[2022-04-05 11:25] LABS: Alanine Aminotransferase 23 U/L (0-33); Alcohol Level 33 mg/dL (0-10); Alkaline Phosphatase 89 IU/L (35-105); Blood Urea Nitrogen 6 mg/dL (6-20); Calcium 9.2 mg/dL (8.5-10.5); Carbon Dioxide 18 mmol/L (22-29); Chloride 96 mmol/L (98-107); Creatinine Clr Calc Pharmacy 148.4641; Globulin 3.5 g/dL (1.3-4.6); Glucose 68 mg/dL (65-115); Osmolality Calculated 278 mOsm/kg (285-295); Sodium 136 mmol/L (136-145); Total Bilirubin 1.1 mg/dL (0.15-1.2); Total Protein 8.5 g/dL (6.6-8.7)
[2022-04-05 11:29] LABS: Acetaminophen < 5.0 ug/mL (10-30); Anion Gap 26.5 (5-19); Potassium 4.5 mmol/L (3.5-5.1); Salicylate < 0.3 mg/dL (3-10)
[2022-04-05 11:30] LABS: Aspartate Amino Transferase 47 U/L (0-32)
[2022-04-05 11:32] LABS: ABG PCO2 25.8 mmHg (35-45); ABG PH Result 7.45 (7.35-7.45); Alveolar-Arterial Oxygen Gradi 0.8 mmHg (5-10); Arterial Blood Gas Hematocrit 44.2 % (37-47); Base Excess ABG -4.1 mmol/L (-2.0-2.0); Blood Gas Allen Test Pos; Blood Gas Operator Identificat glc; Blood Gas Sample Site Radial, left; Blood Gas Sample Type Arterial; Carboxyhemoglobin 0.6 %THgb (0.4-20.1); HCO3 ABG 18.1 mmol/L (22-26); HGB O2 Sat 97.6 % (95-100); Ionized Calcium Level - ABG 1.1 mmol/L (1.1-1.4); Methemoglobin 0.4 % (0.4-1.5); Oxygen Device ROOM AIR; Oxygen Saturation ABG 98.7; Total Hemoglobin 14.4 g/dL (12-16)
[2022-04-05 12:10] VITALS: BP 116/76; PULSE 119; RESP 16; O2SAT 98
[2022-04-05 12:37] VITALS: BP 116/76; PULSE 121; O2SAT 98
== END 2022-04-05 12:39 | disposition home or self-care (01) ==
PROVIDERS: Emergency Provider Family Medicine
DX: F10.229 Alcohol dependence with intoxication, unspecified (principal); Y90.1 Blood alcohol level of 20-39 mg/100 ml; R06.4 Hyperventilation
CPT/HCPCS: 36600; 71045; 80051; 80053; 80307; 82330; 82805; 85025; 93005; 96361; 96374; 96375; 99285; C9113; J2060; J2405; J7030

== ENCOUNTER 2022-07-15 13:59 | Emergency (ER) | payer MEDICAID, SELFPAY ==
[2022-07-15 13:59] VITALS: BP 145/108; PULSE 131; RESP 18; TEMP 36.9; O2SAT 98; BMI 24.0
--- NOTE | 2022-07-15 14:49 | ED_ITS ---
HPI - Alcohol General: Chief Complaint: Alcohol Stated Complaint: Alcohol withdrawls Time Seen by Provider: 07/15/22 14:39 History of Present Illness: 32-year-old presents with concern for alcohol withdrawal. Reports last drink was last night. Reports history of heavy drinking. Denies any seizures. Denies any suicidal homicidal ideation or drug use. Review of Systems Narrative: - CONSTITUTIONAL: Denies weight loss, fever and chills. - HEENT: Denies changes in vision and hearing. - RESPIRATORY: Denies SOB and cough. - CV: Denies palpitations and CP. - GI: Reports nausea, denies abdominal pain, vomiting and diarrhea. - : Denies dysuria and urinary frequency. - MSK: Denies myalgia and joint pain. - SKIN: Denies rash and pruritus. - NEUROLOGICAL: Denies headache, weakness, numbness and syncope. - PSYCHIATRIC: Denies suicidal ideation [facility] ED PFSH: Medical History No pertinent family history Surgical History No pertinent past surgical history Female Reproductive History: Date of last menstrual period: 04/03/22 Physical Exam Narrative: EXAM NARRATIVE: - GENERAL: Alert and oriented x 3. No acute distress. Well-nourished. - EYES: EOMI. Anicteric. - HENT: Atraumatic, no C-spine tenderness. Moist mucous membranes. No scleral icterus. No cervical lymphadenopathy. - LUNGS: Clear to auscultation bilaterally. No accessory muscle use. Equal lung sounds bilaterally. No respiratory distress. - CARDIOVASCULAR: Tachycardic, regular rhythm. No murmur. No JVD. - ABDOMEN: Soft, non-tender and non-distended. Negative CVA tenderness bilaterally, no rebound or guarding, negative Flores sign. No palpable masses. - EXTREMITIES: No edema. Non-tender. - SKIN: No rashes or lesions. Warm. - NEUROLOGIC: No meningismus or focal neurological deficits. CN II-XII grossly intact. - PSYCHIATRIC: Cooperative. Appropriate mood and affect. Course Vital Signs: Vital signs: Vital Signs Temperature 98.4 F 07/15/22 13:59 Pulse Rate 131 H 07/15/22 13:59 Respiratory Rate 18 07/15/22 13:59 Blood Pressure 129/85 07/15/22 17:00 Pulse Oximetry 99 07/15/22 17:00 Oxygen Delivery Me thod 07/15/22 13:59 MDM - Alcohol Medical Decision Making 32-year-old presents due to concern for alcohol withdrawal. Has not had any seizures. Does not appear to be in DT. States that previous only with other episodes of withdrawal she had sensation of music in her ears but denies any current hallucinations. Initially tachycardic but improved with IV fluids. Blood work unremarkable except for elevated bilirubin level. However she denies any abdominal pain. Prescription for Librium provided. At this time I believe patient would be safe for discharge and outpatient follow-up. Return precautions provided. Plan was reviewed with the patient who expressed understanding. Questions answered. Patient will follow up with PCP. Patient discharged in stable condition. Lab Data : 07/15/22 15:21 07/15/22 15:21 Laboratory Results WBC 8.0 10^3/uL (4.0-10.0) 07/15/22 15:21 RBC 4.97 10^6/uL (4.1-5.3) 07/15/22 15:21 Hgb 15.3 g/dL (11.5-15.3) 07/15/22 15:21 Hct 47.2 % (37.0-47.0) H 07/15/22 15:21 MCV 95.0 fl (81-99) 07/15/22 15:21 MCH 30.8 pg (28.0-34.0) 07/15/22 15:21 MCHC 32.4 g/dL (30.0-36.0) 07/15/22 15:21 RDW 13.4 % (12.1-15.1) 07/15/22 15:21 Plt Count 250 10^3/cmm (130-400) 07/15/22 15:21 MPV 9.8 fL (7.4-10.4) 07/15/22 15:21 Neut % (Auto) 77.7 % 07/15/22 15:21 Lymph % (Auto) 14.3 % 07/15/22 15:21 [place] % (Auto) 5.6 % 07/15/22 15:21 Eos % (Auto) 0.8 % 07/15/22 15:21 Baso % (Auto) 1.0 % 07/15/22 15:21 Neut # (Auto) 6.22 10^3/uL (1.8-7.7) 07/15/22 15:21 Lymph # (Auto) 1.1 10^3/uL (0.8-4.8) 07/15/22 15:21 [place] # (Auto) 0.5 10^3/uL (0.2-0.9) 07/15/22 15:21 Eos # (Auto) 0.1 10^3/uL (0.0-0.8) 07/15/22 15:21 Baso # (Auto) 0.1 10^3/uL (0.0-0.1) 07/15/22 15:21 Nucleated RBC % (auto) 0 % 07/15/22 15:21 Nucleated RBCs # 0.0 /100WBC 07/15/22 15:21 Sodium 134 mmol/L (136-145) L 07/15/22 15:21 Potassium 4.3 mmol/L (3.5-5.1) 07/15/22 15:21 Chloride 99 mmol/L (98-107) 07/15/22 15:21 Carbon Dioxide 19 mmol/L (22-29) L 07/15/22 15:21 Anion Gap 20.3 (5-19) H 07/15/22 15:21 BUN 6 mg/dL (6-20) 07/15/22 15:21 Creatinine 0.5 mg/dL (0.5-0.9) 07/15/22 15:21 GFR Calculation 143.0 mL/min (90-130) H 07/15/22 15:21 Glucose 66 mg/dL (65-115) 07/15/22 15:21 Calculated Osmolality 274 mOsm/kg (285-295) L 07/15/22 15:21 Calcium 9.1 mg/dL (8.5-10.5) 07/15/22 15:21 Total Bilirubin 2.5 mg/dL (0.15-1.2) H 07/15/22 15:21 AST 30 U/L (0-32) 07/15/22 15:21 ALT 18 U/L (0-33) 07/15/22 15:21 Alkaline Phosphatase 86 U/L (35-105) 07/15/22 15:21 Total Protein 7.8 g/dL (6.6-8.7) 07/15/22 15:21 Albumin 5.0 g/dL (3.5-5.2) 07/15/22 15:21 Globulin 2.8 g/dL (1.3-4.6) 07/15/22 15:21 TSH 0.91 uIU/mL (0.27-4.20) 07/15/22 15:21 HCG, Qual Negative (Negative) 07/15/22 15:20 Urine Color Yellow (Yellow) 07/15/22 15:20 Urine Appearance Clear (CLEAR) 07/15/22 15:20 Urine pH 5 (5-7) 07/15/22 15:20 Ur Specific [place] 1.020 (1.005-1.030) 07/15/22 15:20 Urine Protein Trace (Negative) 07/15/22 15:20 Urine Glucose (UA) Norm (Normal) 07/15/22 15:20 Urine Ketones 3+ (Negative) H 07/15/22 15:20 Urine Blood 2+ (Negative) H 07/15/22 15:20 Urine Nitrate Negative (Negative) 07/15/22 15:20 Urine Bilirubin Neg (Negative) 07/15/22 15:20 Urine Urobilinogen Norm mg/dL (Negative) 07/15/22 15:20 Ur Leukocyte Esterase Negative (Negative) 07/15/22 15:20 Urine RBC None /hpf (0-2) 07/15/22 15:20 Urine WBC None /hpf (0-5) 07/15/22 15:20 Ur Squamous Epith Cells 0-4 /hpf (0-5) H 07/15/22 15:20 Amorphous Sediment Not Reportable 07/15/22 15:20 Urine Bacteria 1+ /hpf (NONE) H 07/15/22 15:20 Urine Mucus 2+ /hpf 07/15/22 15:20 Urine Opiates Screen Negative ng/mL (Negative) 07/15/22 15:20 Ur Barbiturates Screen Negative ng/mL (Negative) 07/15/22 15:20 Ur Phencyclidine Scrn Negative ng/mL (Negative) 07/15/22 15:20 Ur Amphetamines Screen Negative ng/mL (Negative) 07/15/22 15:20 U Benzodiazepines Scrn Negative ng/mL (Negative) 07/15/22 15:20 Urine Cocaine Screen Negative ng/mL (Negative) 07/15/22 15:20 U Marijuana (THC) Screen Negative ng/mL (Negative) 07/15/22 15:20 Ethyl Alcohol < 10 mg/dL (0-10) 07/15/22 15:21 Discharge Plan Discharge Condition: Stable Prescriptions: No Action Zofran 4 mg Tablet 4 mg PO Q8H PRN (Reason: Nausea) Coding Level of Care Code ED Senior Graduate Advisor for Fannie Carr
[2022-07-15] MEDS: multivitamin therapeutic Tablet 1 TAB PO (15:13)
[2022-07-15] MEDS: chlordiazePOXIDE 25 mg Capsule PO (15:13)
[2022-07-15] MEDS: sodium chloride 0.9% 1,000 ML 999 ML IV (15:26)
[2022-07-15 15:40] LABS: Basophils # 0.1 10^3/uL (0.0-0.1); Eosinophils # 0.1 10^3/uL (0.0-0.8); Eosinophils % 0.8 %; Hematocrit 47.2 % (37.0-47.0); Hemoglobin 15.3 g/dL (11.5-15.3); Lymphocytes # 1.1 10^3/uL (0.8-4.8); Lymphocytes % 14.3 %; Mean Corpuscular HGB Conc 32.4 g/dL (30.0-36.0); Mean Corpuscular Hemoglobin 30.8 pg (28.0-34.0); Mean Platelet Volume 9.8 fL (7.4-10.4); Monocytes # 0.5 10^3/uL (0.2-0.9); Monocytes % 5.6 %; Neutrophils # 6.22 10^3/uL (1.8-7.7); Neutrophils % 77.7 %; Nucleated Red Blood Cells % 0 %; Platelet Count 250 10^3/cmm (130-400); Red Blood Count 4.97 10^6/uL (4.1-5.3); Red Cell Distribution Width 13.4 % (12.1-15.1)
[2022-07-15 15:48] LABS: HCG Qualitative Urine. Negative (Negative)
[2022-07-15 15:50] LABS: Amphetamines Screen Urine Negative (Negative); Barbiturates Screen Urine Negative (Negative); Benzodiazepines Screen Urine Negative (Negative); Cocaine Screen Urine Negative (Negative); Opiate Screen Urine Negative (Negative); PCP Screen Urine Negative (Negative); THC Screen Urine Negative (Negative)
[2022-07-15 16:01] LABS: Protein Urine Trace (Negative); Urine Appearance Clear (CLEAR); Urine Color Yellow (Yellow); pH Urine 5 (5-7)
[2022-07-15 16:02] LABS: Add Urine Microscopic? YES; Bilirubin Urine Neg (Negative); Blood Urine 2+ (Negative); Glucose Urine UA Norm (Normal); Ketones Urine 3+ (Negative); Leukocyte Esterase Urine Negative (Negative); Nitrate Urine Negative (Negative); Urobilinogen Urine Norm (Negative)
[2022-07-15 16:12] LABS: Add Urine Culture? No; Bacteria Urine 1+ /hpf; Mucus Urine 2+ /hpf; Squamous Epithelial Cell Urine 0-4 /hpf (0-5)
[2022-07-15 16:13] LABS: Alanine Aminotransferase 18 U/L (0-33); Alkaline Phosphatase 86 U/L (35-105); Anion Gap 20.3 (5-19); Aspartate Amino Transferase 30 U/L (0-32); Blood Urea Nitrogen 6 mg/dL (6-20); Calcium 9.1 mg/dL (8.5-10.5); Carbon Dioxide 19 mmol/L (22-29); Chloride 99 mmol/L (98-107); Creatinine Clr Calc Pharmacy 148.4641; Globulin 2.8 g/dL (1.3-4.6); Glucose 66 mg/dL (65-115); Osmolality Calculated 274 mOsm/kg (285-295); Potassium 4.3 mmol/L (3.5-5.1); Sodium 134 mmol/L (136-145); Thyroid Stimulating Hormone 0.91 uIU/mL (0.27-4.20); Total Bilirubin 2.5 mg/dL (0.15-1.2); Total Protein 7.8 g/dL (6.6-8.7)
[2022-07-15 16:29] VITALS: BP 123/96; O2SAT 100
[2022-07-15 16:30] VITALS: BP 123/96; O2SAT 100
[2022-07-15 16:50] LABS: Alcohol Level < 10 mg/dL (0-10)
[2022-07-15 17:00] VITALS: BP 129/85; O2SAT 99
[2022-07-15 17:30] VITALS: BP 124/86; O2SAT 100
[2022-07-15 18:00] VITALS: BP 126/83; O2SAT 97
--- NOTE | 2022-07-17 11:35 | DCPLANNER ---
sow manager had message to speak with patient about options for alcohol cessation resources. sow manager attempted to call patient, unable to speak with patient at this time, and unable to leave a voicemail.
== END 2022-07-15 18:07 | disposition home or self-care (01) ==
PROVIDERS: Emergency Provider Emergency Medicine
DX: F10.239 Alcohol dependence with withdrawal, unspecified (principal)
CPT/HCPCS: 80053; 80306; 80307; 81001; 81025; 84443; 85025; 99283; J7030

== ENCOUNTER 2022-08-14 08:10 | Emergency (ER) | payer MEDICAID, SELFPAY ==
[2022-08-14 08:30] VITALS: BP 168/111; PULSE 105; RESP 20; TEMP 36.4; O2SAT 96
[2022-08-14 08:39] VITALS: BP 148/100; PULSE 96; RESP 24; O2SAT 100
--- NOTE | 2022-08-14 08:53 | ED_ITS ---
HPI - Alcohol General: Chief Complaint: Alcohol Stated Complaint: withdrawls Time Seen by Provider: 08/14/22 08:22 Source: patient Mode of arrival: ambulatory History of Present Illness: 32-year-old female presents emergency room wanting to stop drinking alcohol. She binge drinks she drank heavily 12 pack of beer a day for a week prior to that she not been drinking for some time. She is feeling shaky anxious and depressed today. She is not had any vomiting no diarrhea no hematemesis no coffee-ground emesis no previous known history of cirrhosis or esophageal varices MD complaint: alcohol dependence Chronic alcohol use: Yes Recent trauma: No Associated symptoms: Reports depression; Deny abdominal pain, diaphoresis, hematemesis, involuntary movements, melena, nausea, seizure-like activity, suicidal ideation, syncope or vomiting Treatments prior to arrival: none Review of Systems Const: Denies: fever(s), chills, fatigue, malaise or diaphoresis ENMT: Denies: throat pain, ear or mastoid pain, nasal discharge or nasal congestion Card: Denies: chest pain, palpitations or syncope Resp: Denies: dyspnea, productive cough or non-productive cough GI: Denies: abdominal pain, nausea, vomiting, hematemesis or melena : Denies: flank pain, difficulty voiding, dysuria, urinary frequency or urinary urgency Skin/Breast: Denies: rash or pruritus Neuro: Denies: seizure-like activity or involuntary movements Psych: Reports: anxiety, depression and visual hallucinations (Some visual hallucinations when trying to sleep); Denies: suicidal ideation [facility] ED PFSH: Medical History No pertinent family history Surgical History No pertinent past surgical history Female Reproductive History: Date of last menstrual period: 04/03/22 Physical Exam Const: GENERAL APPEARANCE: cooperative and comfortable ORIENTATION/CONSCIOUSNESS: Yes awake, Yes oriented to person, Yes oriented to place and Yes oriented to time HENMT: COMMON NORMALS: normocephalic and atraumatic HEAD & SCALP: normocephalic and atraumatic Resp: COMMON NORMALS: normal respiratory effort, No retractions, No use of accessory muscles and clear to auscultation bilaterally AUSCULTATION: clear to auscultation bilaterally Cardio: COMMON NORMALS: regular rate, regular rhythm and No murmurs present (Cardio) RATE: regular rate RHYTHM: regular rhythm GI: COMMON NORMALS: Soft to palpation and No hepatosplenomegaly present AUSCULTATION: Yes normoactive bowel sounds PALPATION: Yes Soft to palpation, No Tenderness to palpation present (GI), No Guarding due to palpation present (GI) and Yes No hepatosplenomegaly present Extremity: COMMON NORMALS: normal to inspection, capillary refill normal, no clubbing, cyanosis or edema, no calf tenderness and no pedal edema Neuro: SENSORIUM/ORIENTATION: Yes oriented to person, Yes oriented to place and Yes oriented to time Skin: COMMON NORMALS: no rashes or lesions noted GENERAL SKIN EXAM: no rashes or lesions noted Course Vital Signs: Vital signs: Vital Signs Temperature 97.6 F 08/14/22 08:30 Pulse Rate 94 08/14/22 11:27 Respiratory Rate 20 H 08/14/22 11:27 Blood Pressure 137/96 08/14/22 11:27 Pulse Oximetry 99 08/14/22 11:27 Oxygen Delivery Me thod 08/14/22 11:27 MDM - Alcohol Medical Decision Making Tapering dose of Librium encouraged alcohol abstinence. Discussed with the patient pursuing outpatient treatment program such as [facility] or [facility]. Medical Records I reviewed the patient's medical records. Lab Data I reviewed the patient's lab results. : 08/14/22 08:51 08/14/22 08:51 Laboratory Results WBC 3.6 10^3/uL (4.0-10.0) L 08/14/22 08:51 RBC 4.22 10^6/uL (4.1-5.3) 08/14/22 08:51 Hgb 13.0 g/dL (11.5-15.3) 08/14/22 08:51 Hct 40.0 % (37.0-47.0) 08/14/22 08:51 MCV 94.8 fl (81-99) 08/14/22 08:51 MCH 30.8 pg (28.0-34.0) 08/14/22 08:51 MCHC 32.5 g/dL (30.0-36.0) 08/14/22 08:51 RDW 15.0 % (12.1-15.1) 08/14/22 08:51 Plt Count 192 10^3/cmm (130-400) 08/14/22 08:51 MPV 10.1 fL (7.4-10.4) 08/14/22 08:51 Neut % (Auto) 58.4 % 08/14/22 08:51 Lymph % (Auto) 21.6 % 08/14/22 08:51 [place] % (Auto) 13.8 % 08/14/22 08:51 Eos % (Auto) 4.5 % 08/14/22 08:51 Baso % (Auto) 1.4 % 08/14/22 08:51 Neut # (Auto) 2.08 10^3/uL (1.8-7.7) 08/14/22 08:51 Lymph # (Auto) 0.8 10^3/uL (0.8-4.8) 08/14/22 08:51 [place] # (Auto) 0.5 10^3/uL (0.2-0.9) 08/14/22 08:51 Eos # (Auto) 0.2 10^3/uL (0.0-0.8) 08/14/22 08:51 Baso # (Auto) 0.1 10^3/uL (0.0-0.1) 08/14/22 08:51 Nucleated RBC % (auto) 0 % 08/14/22 08:51 Nucleated RBCs # 0.0 /100WBC 08/14/22 08:51 Sodium 134 mmol/L (136-145) L 08/14/22 08:51 Potassium 4.1 mmol/L (3.5-5.1) 08/14/22 08:51 Chloride 100 mmol/L (98-107) 08/14/22 08:51 Carbon Dioxide 20 mmol/L (22-29) L 08/14/22 08:51 Anion Gap 18.1 (5-19) 08/14/22 08:51 BUN 7 mg/dL (6-20) 08/14/22 08:51 Creatinine 0.5 mg/dL (0.5-0.9) 08/14/22 08:51 GFR Calculation 143.0 mL/min (90-130) H 08/14/22 08:51 Glucose 89 mg/dL (65-115) 08/14/22 08:51 Calculated Osmolality 275 mOsm/kg (285-295) L 08/14/22 08:51 Calcium 9.0 mg/dL (8.5-10.5) 08/14/22 08:51 Total Bilirubin 1.9 mg/dL (0.15-1.2) H 08/14/22 08:51 AST 27 U/L (0-32) 08/14/22 08:51 ALT 15 U/L (0-33) 08/14/22 08:51 Alkaline Phosphatase 79 U/L (35-105) 08/14/22 08:51 Total Protein 7.1 g/dL (6.6-8.7) 08/14/22 08:51 Albumin 4.0 g/dL (3.5-5.2) 08/14/22 08:51 Globulin 3.1 g/dL (1.3-4.6) 08/14/22 08:51 Discharge Plan Discharge Patient Disposition: Home Clinical Impression: Alcohol abuse Condition: Stable Prescriptions: New chlordiazepoxide HCl 10 mg capsule 10 mg PO TID Qty: 13 0RF Rx Instructions: 1 p.o. 3 times daily x2 days, 1 p.o. twice daily x2 days, 1 p.o. every morning x3 days No Action hydroxyzine HCl 25 mg tablet 25 mg PO QID PRN (Reason: Anxiety) buspirone 15 mg Tablet 15 mg PO TID PRN (Reason: Anxiety) Lexapro 10 mg Tablet 10 mg PO DAILY Discharge Orders: Discharge ED (Routine); Ordered 08/14/22 Ordered By: Franklyn Johnston Discharge Diet: Usual diet Discharge Activity: Increase activity as tolerated Coding Level of Care Code ED Efficiency Manager for Chg Fwd Exam Detailed
[2022-08-14 09:03] LABS: Basophils # 0.1 10^3/uL (0.0-0.1); Basophils % 1.4 %; Eosinophils # 0.2 10^3/uL (0.0-0.8); Eosinophils % 4.5 %; Lymphocytes # 0.8 10^3/uL (0.8-4.8); Lymphocytes % 21.6 %; Mean Corpuscular HGB Conc 32.5 g/dL (30.0-36.0); Mean Corpuscular Hemoglobin 30.8 pg (28.0-34.0); Mean Corpuscular Volume 94.8 fl (81-99); Mean Platelet Volume 10.1 fL (7.4-10.4); Monocytes # 0.5 10^3/uL (0.2-0.9); Monocytes % 13.8 %; Neutrophils # 2.08 10^3/uL (1.8-7.7); Neutrophils % 58.4 %; Nucleated Red Blood Cells % 0 %; Platelet Count 192 10^3/cmm (130-400); Red Blood Count 4.22 10^6/uL (4.1-5.3); White Blood Count 3.6 10^3/uL (4.0-10.0)
[2022-08-14] MEDS: LORazepam 2 mg Tablet PO (09:11)
[2022-08-14 09:14] VITALS: BP 151/107; PULSE 92; RESP 22; O2SAT 98
[2022-08-14 09:30] LABS: Alanine Aminotransferase 15 U/L (0-33); Alkaline Phosphatase 79 U/L (35-105); Aspartate Amino Transferase 27 U/L (0-32); Blood Urea Nitrogen 7 mg/dL (6-20); Carbon Dioxide 20 mmol/L (22-29); Chloride 100 mmol/L (98-107); Globulin 3.1 g/dL (1.3-4.6); Glucose 89 mg/dL (65-115); Osmolality Calculated 275 mOsm/kg (285-295); Sodium 134 mmol/L (136-145); Total Bilirubin 1.9 mg/dL (0.15-1.2); Total Protein 7.1 g/dL (6.6-8.7)
[2022-08-14 09:35] LABS: Anion Gap 18.1 (5-19); Potassium 4.1 mmol/L (3.5-5.1)
[2022-08-14 09:46] VITALS: BP 143/98; PULSE 89; RESP 22; O2SAT 98
[2022-08-14 10:00] VITALS: BP 135/92; PULSE 94; RESP 20; O2SAT 98
[2022-08-14] MEDS: sodium chloride 0.9% 1,000 ML 999 ML IV (10:20)
[2022-08-14 11:27] VITALS: BP 137/96; PULSE 94; RESP 20; O2SAT 99
== END 2022-08-14 11:45 | disposition home or self-care (01) ==
PROVIDERS: Emergency Provider Family Medicine
DX: F10.10 Alcohol abuse, uncomplicated (principal)
CPT/HCPCS: 80053; 85025; 96360; 99284; J7030

== ENCOUNTER 2024-02-15 10:29 | Emergency (ER) | payer MEDICAID, SELFPAY ==
[2024-02-15 10:38] VITALS: BP 132/88; PULSE 113; RESP 19; TEMP 36.9; O2SAT 98
--- NOTE | 2024-02-15 11:00 | ED_ITS ---
HPI - Alcohol General: Chief Complaint: Alcohol Stated Complaint: alch withdraw Time Seen by Provider: 02/15/24 10:34 History of Present Illness: The patient presents to the ER with a chief complaint of alcohol withdrawals. She reports her last alcohol withdrawal occurred two years ago, without any complications such as seizures. The patient's last drink was this morning. She states that she wants to quit drinking and is currently alone in this decision. The patient has been consuming approximately 12 cans of beer daily for the past two months, which she attributes to her leaving her. She denies any thoughts of self-harm or harm to others. The patient has no other reported medical conditions. She is a long-time smoker, consuming less than half a pack of cigarettes per day. Review of Systems General: Reports: 10 or more systems reviewed and unremarkable except in HPI and below PFSH ED PFSH: Medical History No pertinent family history Surgical History No pertinent past surgical history Physical Exam Const: COMMON NORMALS: no acute distress, patient oriented x3, healthy appearing, alert and well nourished HENMT: COMMON NORMALS: normocephalic HEAD & SCALP: normocephalic Eye: COMMON NORMALS: EOMs intact bilaterally Neck/C-Spine: COMMON NORMALS: full ROM and supple Resp: COMMON NORMALS: normal respiratory effort, No retractions and clear to auscultation bilaterally AUSCULTATION: clear to auscultation bilaterally Cardio: COMMON NORMALS: regular rate, regular rhythm, No gallops present (Cardio) and No murmurs present (Cardio) RATE: regular rate RHYTHM: regular rhythm GI: COMMON NORMALS: Soft to palpation and non-tender PALPATION: Yes Soft to palpation Extremity: GENERAL: Yes normal exam except as noted Neuro: COMMON NORMALS: patient oriented x3 SENSORIUM/ORIENTATION: Yes alert Skin: COMMON NORMALS: no rashes or lesions noted GENERAL SKIN EXAM: no rashes or lesions noted Course Vital Signs: Vital signs: Vital Signs Temperature 98.5 F 02/15/24 10:38 Pulse Rate 113 H 02/15/24 10:38 Respiratory Rate 19 H 02/15/24 10:38 Blood Pressure 132/88 03/30/24 10:38 Pulse Oximetry 98 02/15/24 10:38 Oxygen Delivery Me thod Room Air 02/15/24 10:38 MDM - Alcohol Medical Decision Making 34-year-old female presents to the emergency department for evaluation of alcohol detox. Alcohol Withdrawal: The patient has been consuming 12 cans of beer daily for the past two months, with the last consumption occurring this morning. There is a history of uncomplicated alcohol withdrawal two years ago. - Monitor for signs of withdrawal and potential complications, including delirium tremens and seizures. -Patient did not want laboratory evaluation at this time. Administer IV fluids, folate, thiamine, and multivitamin given. - Discuss detox facility options with the patient and coordinate referrals with nursing staff. 2. Tobacco Use: The patient has a long history of smoking, currently less than half a pack per day. - Provide smoking cessation counseling and discuss resources such as nicotine replacement therapy or medications (varenicline, bupropion) for those interested in quitting. 3. Psychosocial Stressors: Increased alcohol consumption noted following the departure of the patient's . No suicidal or homicidal ideation reported. - Assess for depression and anxiety, and consider referral to mental health services for further evaluation and support. 4. General Health Maintenance: The patient denies any other medical conditions. - Continue monitoring for new or worsening symptoms throughout alcohol withdrawal treatment. - Encourage establishing care with a primary care physician for routine health maintenance and follow-up after emergency department discharge. No radiology studies performed this visit Discharge Plan Discharge Patient Disposition: Home Clinical Impression: Alcoholic intoxication Qualifiers: Complication of substance-induced condition: uncomplicated Qualified Code(s): F10.920 - Alcohol use, unspecified with intoxication, uncomplicated Condition: Stable Prescriptions: No Action No Known Home Medications Discharge Orders: Discharge ED (Routine); Ordered 02/15/24 Ordered By: Damir Law Discharge Diet: Advance as tolerated Discharge Activity: Resume usual activity Patient Instructions: Opioid Safety, Pain Management Coding Level of Care Code ED Home [employer] for [employer]
--- NOTE | 2024-02-15 11:09 | PC.PHAR ---
PT STATES TAKES NO MEDICATIONS OR OTC VITAMINS OR SUPPLEMENTS CURRENTLY.
[2024-02-15] MEDS: folic acid 1 MG, multivitamin inj 10 ML, thiamine 100 MG in sodium chloride 0.9% 1,000 ML 252.800000000000011 MG IV (11:32)
[2024-02-15 12:32] VITALS: BP 135/90; PULSE 98; RESP 16; TEMP 36.9; O2SAT 97
== END 2024-02-15 12:33 | disposition home or self-care (01) ==
PROVIDERS: Emergency Provider General Practice
DX: F10.920 Alcohol use, unspecified with intoxication, uncomplicated (principal); Y90.9 Presence of alcohol in blood, level not specified
CPT/HCPCS: 96360; 99284; J3411; J3490; J7030

== ENCOUNTER → 2024-03-17 16:55 | Outpatient (BNVA) | payer MEDICAID, SELFPAY | PROVIDERS: Visit Provider Family Medicine | DX: R30.9 Painful micturition, unspecified (principal) | CPT/HCPCS: 81000; 81025 ==